=== PATIENT | male | born 1985 | race Caucasian/White ===

== ENCOUNTER 2021-10-19 21:42 | Emergency (ER) | payer BC, MEDICAID ==
[~2021-10-19] VITALS: Ht 185.4 cm; Wt 108.9 kg
[2021-10-19 21:46] VITALS: BP_SYST 128
--- NOTE | 2021-10-19 21:50 | NUR ---
PATIENT HAS NEW RASH THAT STARTED FOUR DAYS AGO WHEN PATIENT STARTED NEW SOAP. RASH NOTED TO BILATERAL LEGS, ARMS, CHEST, FACE, BACK.
--- NOTE | 2021-10-19 21:52 | NUR ---
PATIENT BROUGHT TO BED 5.
--- NOTE | 2021-10-19 21:55 | NUR ---
Pt in room 5 w/ c/o of generalized uticaria and rash s/p use of [place] soap. Pending eval by
[2021-10-19] MEDS ORDERED: predniSONE 20 MG TABLET PO ONE (22:15)
[2021-10-19] MEDS ORDERED: FAMOTIDINE 20 MG TABLET PO ONE (22:15)
[2021-10-19] MEDS ORDERED: DIPHENHYDRAMINE HCL 25 MG CAPSULE PO ONE (22:15)
[2021-10-20] MEDS ORDERED: EPIN0.3P3 IM ×2 (00:02→00:25)
[2021-10-20] MEDS ORDERED: PRED20TA PO ×2 (00:02→00:25)
[2021-10-20] MEDS ORDERED: FAMO-132 PO ×2 (00:02→00:25)
--- NOTE | 2021-10-20 00:32 | NUR ---
Assisting primary RN w/ d/c. Patient given written and verbal discharge instructions and verbalizes understanding. ER MD discussed with patient the results and treatment provided. Patient in stable condition. ID arm band removed. Rx of Prednisone, Epi-Pen, Pepcid given. Patient educated on pain management and to follow up with PMD. Pain Scale 2/10. Opportunity for questions provided and answered. Medication side effect fact sheet provided.
[2021-10-20 00:42] VITALS: BP_SYST 129
== END 2021-10-20 00:33 | disposition home or self-care (01) ==
LOC: SED 21:42
DX: T78.40XA Allergy, unspecified, initial encounter (principal); R21 Rash and other nonspecific skin eruption; Z79.899 Other long term (current) drug therapy; X58.XXXA Exposure to other specified factors, initial encounter
CPT/HCPCS: 99284; Q0163; J7512